=== PATIENT | female | born 1945 | race Caucasian/White ===

== ENCOUNTER → 2017-07-08 | Outpatient (CLI) | payer MEDICARE ==
[~2017-07-08] MED LIST: ASPIRIN EC325 M1 PO; ASPIRIN325 PO; AZASAN100 MG PO; AZATHIOPRINE50 MG PO; AZITHROMYCIN 2250 MG PO; BIOTIN2500 MCG PO; CALCIUM 500 +1 EAC5 PO; CALCIUM 600 +1 EAC1 PO; CARAFATE 1 GM TA1 GM PO; CIPRO500 MG PO; ECOTRIN325 MG PO; FISH OIL 1,001000 M2 PO; FLAGYL500 MG PO; MAGOX 400400 MG PO; MULTIVITAMINS PO; OMEPRAZOLE20 M1 PO; OXYCODONE HCL5 M1 PO; PHENERGAN 25 MG25 M1 PO; PREDNISONE 10 M10 MG PO; PREDNISONE 20 M20 MG PO; PREVACID30 MG PO; PROBIOTIC FORM1 EACH PO; PROBIOTIC1 EAC1 PO; VITAMIN D2000 UNIT PO; VITAMIN E400 UNIT PO; XARELTO10 MG PO; XARELTO20 MG PO
== END ==
LOC: M.RAD 11:46
DX: M85.89 Other specified disorders of bone density and structure, multiple sites (principal); Z78.0 Asymptomatic menopausal state

== ENCOUNTER → 2019-01-22 | Outpatient (CLI) | payer MEDICARE | LOC: M.RAD 08:16 | DX: M77.32 Calcaneal spur, left foot (principal); M25.872 Other specified joint disorders, left ankle and foot ==

== ENCOUNTER → 2019-05-07 | Outpatient (CLI) | payer MEDICARE | LOC: M.ULTRA 09:45 | DX: K76.0 Fatty (change of) liver, not elsewhere classified (principal) ==

== ENCOUNTER → 2021-04-11 | Outpatient (CLI) | payer MEDICARE | LOC: M.ULTRA 12:34 | PROVIDERS: ATTEND Internal Medicine | DX: D68.51 Activated protein C resistance (principal); Z86.718 Personal history of other venous thrombosis and embolism ==